=== PATIENT | female | born 1930 | race Caucasian/White ===

== ENCOUNTER 2016-08-02 06:00 | Emergency (ER) | payer MEDICARE, OTHER ==
[2016-08-02] MEDS ORDERED: HYDROmorphone 1 MG/ML Syringe IVPUSH ONE ×2 (06:15→07:07)
[2016-08-02] MEDS: Sodium Chloride 0.9% 1,000 ML IV ONE ×2 (06:40→09:00)
[2016-08-02] MEDS ORDERED: Metoclopramide 10 MG/2 ML SDV ONE (06:40)
[2016-08-02 07:04] LABS: CHLORIDE,CL 101 mmol/L (98-115); SODIUM,NA 140 mmol/L (136-145)
[2016-08-02] MEDS ORDERED: HYDROmorphone 1 MG/ML Syringe ONE (07:06)
[2016-08-02] MEDS ORDERED: Iopamidol 612 MG/ML 75 ML Bottle IV ONE (07:14)
[2016-08-02] MEDS ORDERED: Sodium Chloride 0.9% 50 ML SDV FLUSH SCH (07:15)
--- NOTE | 2016-08-02 07:15 | EDM.PDOC ---
<Augustus Jacob - Last Filed: 08/02/16 07:09> ED HPI GI/ABDOMINAL - General Chief Complaint: Abdominal Pain Stated Complaint: abd pain Time Seen by Provider: 08/02/16 06:50 Source of Information: Reports: Patient, Family ([employer]) History Limitations: Reports: No limitations - History of Present Illness INITIAL COMMENTS - FREE TEXT/NARRATIVE: PT STATES SHE DEVELOPED GENERALIZED ABD PAIN AT 1800 YESTERDAY. PAIN DESCRIBED SHARP, CONSTANT, AND BECOMING WORSE. ONE EPISODE OF VOMITING. DENIES FEVER, BOWEL CHANGES, BLOODY STOOL, DYSURIA, CP, OR SOB. Symptom Onset Date: 08/01/16 Symptom Onset Time: 18:00 Timing/Duration: Reports: Hour(s): Location: generalized Quality: Reports: ache Severity: severe Improves with: Reports: other (NOTHING) Worsens with: Reports: vomiting Context: Reports: other (DENIES ANY) Associated Symptoms (-Female): Reports: nausea/vomiting. Denies: chest pain, back pain, shoulder pain, constipation, diarrhea, bloody stools, fever/chills Treatments [employer]: Reports: See EMS Report - Related Data Allergies/ADRs: Allergies Allergy/AdvReac Type Severity Reaction Status Date / Time Penicillins Allergy Rash Verified 01/22/16 11:05 Home Meds: Home Meds Benazepril [Lotensin] 20 mg PO DAILY 01/22/16 [History] Potassium Chloride 20 meq PO 01/22/16 [History] Triamt/Hctz 1 tab PO DAILY 01/22/16 [History] Vit A/Vit C/Vit E/Zinc/Copper [Preservision] 1 each PO BID 01/22/16 [History] atorvaSTATin Calcium [Atorvastatin Calcium] 80 mg PO 01/22/16 [History] Past Medical History HEENT History: Reports: Cataract, Macular degeneration Cardiovascular History: Reports: Heart murmur, Hypertension Gastrointestinal History: Reports: GERD Musculoskeletal History: Reports: Arthritis, Other (see below) Other Musculoskeletal History: Lower back arthritis Neurological History: Reports: Other (see below) Other Neuro History: No history of WOLF or migraines until past 2 weeks - Infectious Disease History Infectious Disease History: Reports: Chicken pox, Measles, Mumps - Past Surgical History HEENT Surgical History: Reports: Cataract surgery Cardiovascular Surgical History: Reports: Carotid endarterectomy GI Surgical History: Reports: None Musculoskeletal Surgical History: Reports: None Social & Family History - Tobacco Use Smoking Status *Q: Current Every Day Smoker Years of Tobacco use: 66 Packs/Tins Daily: 1 - Caffeine Use Caffeine Use: Reports: Coffee - Recreational Drug Use Recreational Drug Use: No ED ROS GENERAL - Review of Systems Review Of Systems: ROS reveals no pertinent complaints other than HPI. Constitutional: Reports: no symptoms HEENT: Reports: No symptoms Respiratory: Reports: No Symptoms Cardiovascular: Reports: No symptoms Endocrine: Reports: no symptoms GI/Abdominal: Reports: Abdominal pain : Reports: no symptoms Musculoskeletal: Reports: no symptoms Skin: Reports: no symptoms Neurological: Reports: No Symptoms Psychiatric: Reports: No symptoms Hematologic/Lymphatic: Reports: no symptoms Immunologic: Reports: no symptoms ED EXAM, GI/ABD - Physical Exam Exam: See Below Exam Limited By: No limitations General Appearance: alert, WD/WN, moderate distress, thin Eyes: bilateral: normal appearance Nose: normal inspection, normal mucosa, no blood Throat/Mouth: Normal inspection, Normal oropharynx, No airway compromise Head: atraumatic, normocephalic Neck: normal inspection Respiratory/Chest: no respiratory distress, lungs clear, normal breath sounds, no accessory muscle use, chest non-tender Cardiovascular: normal peripheral pulses, regular rate, rhythm, no murmur GI/Abdominal: soft, no distention, no mass, hyperactive bowel sounds, tenderness (DIFFUSE), guarding. No: non tender Back Exam: normal inspection. No: CVA tenderness (L), CVA tenderness (R) Extremities: normal inspection, no pedal edema Neurological: alert, oriented, normal cognition Psychiatric: normal affect, normal mood Skin Exam: Warm, Dry, Intact, Normal color, No rash Lymphatic: no adenopathy Course - Vital Signs Last Recorded V/S: Last Vital Signs Temp 97.0 F 08/02/16 07:01 Pulse 97 08/02/16 07:01 Resp 20 08/02/16 07:01 BP 115/51 L 08/02/16 07:01 Pulse Ox 93 L 08/02/16 07:01 - Orders/Labs/Meds Orders: Active Orders 24 hr Category Date Time Status Abdomen Pelvis w Cont [CT] Stat Exams 08/02/16 07:08 Taken Sodium Chloride 0.9% [Normal Saline] Med 08/02/16 07:15 Active 50 ml FLUSH ASDIRECTED Medication Orders Sodium Chloride (Normal Saline) 50 ml FLUSH ASDIRECTED HALLE Labs: Laboratory Tests 08/02/16 08/02/16 08/02/16 Range/Units 06:20 06:20 06:20 WBC 17.0 H (5.0-10.0) 10^3/uL RBC 4.03 (3.80-5.50) 10^6/uL Hgb 13.5 (12.0-16.0) g/dL Hct 39.4 (37.0-47.0) % MCV 97.8 H (82.0-92.0) fL MCH 33.5 H (27.0-31.0) pg MCHC 34.3 (32.0-36.0) g/dL RDW 12.2 (11.5-14.5) % Plt Count 268 (150-300) 10^3/uL MPV 7.3 L (7.4-10.4) fL Neut % (Auto) 88.5 H (50.0-70.0) % Lymph % (Auto) 6.3 L (20.0-40.0) % [place] % (Auto) 1.8 L (2.0-8.0) % Eos % (Auto) 0.0 L (1.0-3.0) % Baso % (Auto) 3.4 H (0.0-1.0) % Neut # (Auto) 15.0 H (2.5-7.0) 10^3/uL Lymph # (Auto) 1.1 (1.0-4.0) 10^3/uL [place] # (Auto) 0.3 (0.1-0.8) 10^3/uL Eos # (Auto) 0.0 L (0.1-0.3) 10^3/uL Baso # (Auto) 0.6 H (0.0-0.1) 10^3/uL Sodium 140 (136-145) mmol/L Potassium 4.0 (3.3-5.3) mmol/L Chloride 101 (98-115) mmol/L Carbon Dioxide 26.9 (21.0-32.0) mmol/L BUN 18 (6-25) mg/dL Creatinine 0.94 (0.51-1.17) mg/dL Est Cr Clr Drug Dosing TNP Estimated GFR (MDRD) 57 mL/min Glucose 155 H (70-110) mg/dL Calcium 9.4 (8.7-10.3) mg/dL Total Bilirubin 0.5 (0.2-1.0) mg/dL AST 27 (15-37) U/L ALT 23 (12-78) U/L Alkaline Phosphatase 129 H (46-116) IU/L Total Protein 7.6 (6.4-8.2) g/dL Albumin 3.69 (3.00-4.80) g/dL Lipase 154 (73-393) U/L Specimen Type Urine Color (YELLOW) Urine Appearance (CLEAR) Urine pH (5.0-9.0) Ur Specific [place] (1.005-1.030) Urine Protein (NEGATIVE) mg/dL Urine Glucose (UA) (NEGATIVE) mg/dL Urine Ketones (NEGATIVE) mg/dL Urine Occult Blood (NEGATIVE) Urine Nitrite (NEGATIVE) Urine Bilirubin (NEGATIVE) Urine Urobilinogen (0.2-1.0) E.U./dL Ur Leukocyte Esterase (NEGATIVE) Urine RBC /HPF Urine WBC /HPF Ur Epithelial Cells /LPF Urine Bacteria (NONE TO FEW) /HPF 08/02/16 Range/Units 08:00 WBC (5.0-10.0) 10^3/uL RBC (3.80-5.50) 10^6/uL Hgb (12.0-16.0) g/dL Hct (37.0-47.0) % MCV (82.0-92.0) fL MCH (27.0-31.0) pg MCHC (32.0-36.0) g/dL RDW (11.5-14.5) % Plt Count (150-300) 10^3/uL MPV (7.4-10.4) fL Neut % (Auto) (50.0-70.0) % Lymph % (Auto) (20.0-40.0) % [place] % (Auto) (2.0-8.0) % Eos % (Auto) (1.0-3.0) % Baso % (Auto) (0.0-1.0) % Neut # (Auto) (2.5-7.0) 10^3/uL Lymph # (Auto) (1.0-4.0) 10^3/uL [place] # (Auto) (0.1-0.8) 10^3/uL Eos # (Auto) (0.1-0.3) 10^3/uL Baso # (Auto) (0.0-0.1) 10^3/uL Sodium (136-145) mmol/L Potassium (3.3-5.3) mmol/L Chloride (98-115) mmol/L Carbon Dioxide (21.0-32.0) mmol/L BUN (6-25) mg/dL Creatinine (0.51-1.17) mg/dL Est Cr Clr Drug Dosing Estimated GFR (MDRD) mL/min Glucose (70-110) mg/dL Calcium (8.7-10.3) mg/dL Total Bilirubin (0.2-1.0) mg/dL AST (15-37) U/L ALT (12-78) U/L Alkaline Phosphatase (46-116) IU/L Total Protein (6.4-8.2) g/dL Albumin (3.00-4.80) g/dL Lipase (73-393) U/L Specimen Type Urincath Urine Color Yellow (YELLOW) Urine Appearance Clear (CLEAR) Urine pH 5.5 (5.0-9.0) Ur Specific [place] 1.020 (1.005-1.030) Urine Protein 30 H (NEGATIVE) mg/dL Urine Glucose (UA) Negative (NEGATIVE) mg/dL Urine Ketones Negative (NEGATIVE) mg/dL Urine Occult Blood Negative (NEGATIVE) Urine Nitrite Negative (NEGATIVE) Urine Bilirubin Negative (NEGATIVE) Urine Urobilinogen 0.2 (0.2-1.0) E.U./dL Ur Leukocyte Esterase Negative (NEGATIVE) Urine RBC 0-5 /HPF Urine WBC 0-5 /HPF Ur Epithelial Cells Rare /LPF Urine Bacteria Occasional (NONE TO FEW) /HPF Meds: Medications Generic Name Dose Route Start Last Admin Trade Name Freq PRN Reason Stop Dose Admin Sodium Chloride 50 ml 08/02/16 07:15 Normal Saline FLUSH ASDIRECTED HALLE Discontinued Medications Generic Name Dose Route Start Last Admin Trade Name Freq PRN Reason Stop Dose Admin Hydromorphone HCl 1 mg 08/02/16 06:15 08/02/16 06:40 Dilaudid IVPUSH 08/02/16 06:16 1 mg ONETIME ONE Administration Hydromorphone HCl 1 mg 08/02/16 07:07 08/02/16 07:10 Dilaudid IVPUSH 08/02/16 07:08 1 mg ONETIME ONE Administration Hydromorphone HCl Confirm 08/02/16 07:06 08/02/16 08:01 Dilaudid Administered 08/02/16 07:07 Not Given Dose 1 mg .ROUTE .STK-MED ONE Sodium Chloride 1,000 mls @ 999 mls/hr 08/02/16 06:45 08/02/16 06:40 Normal Saline IV 08/02/16 07:45 999 mls/hr .BOLUS ONE Administration Iopamidol 75 ml 08/02/16 07:14 Isovue-300 (61%) IV 08/02/16 07:15 ONETIME ONE Metoclopramide HCl Confirm 08/02/16 06:40 08/02/16 08:02 Reglan Administered 08/02/16 06:41 Not Given Dose 10 mg .ROUTE .STK-MED ONE Metoclopramide HCl 10 mg 08/02/16 08:04 08/02/16 06:40 Reglan IVPUSH 08/02/16 08:05 10 mg ONETIME ONE Administration - Re-Assessments/Exams Free Text/Narrative Re-Assessment/Exam: 08/02/16 08:11 PT AFEBRILE, VSS, PAIN CONTROLLED. REPORT GIVEN TO WILL FOLLOW PT AND REVIEW CT. Departure - Departure Disposition: DC/Tfer to [facility] 02 Clinical Impression: Neutrophilic leukocytosis, Abdominal aortic aneurysm (AAA) 3.0 cm to 5.0 cm in diameter in female, Free fluid in pelvis Abdominal pain Qualifiers: Abdominal location: generalized Qualified Code(s): R10.84 - Generalized abdominal pain Cholecystolithiasis Qualifiers: Cholecystitis acuity: acute Forms: ED Department Discharge <Anil Reynolds - Last Filed: 08/02/16 09:12> ED EXAM, GI/ABD - Physical Exam GI/Abdominal: other (I re-examined abdomen when I took over care. Pain is most severe surrounding umbilicus and LLQ at this time. There is guarding and moderate firmness at LLQ.) Psychiatric: other (Patient is quite "groggy" with the narcotic doses on board. She does open her eyes in response to questions and cooperates with exam.) Course - Re-Assessments/Exams Free Text/Narrative Re-Assessment/Exam: 08/02/16 08:59 CT report identifies enlarged gallbladder, gallstones, enlarged abdominal aorta , prominent appendix, one atrophic kidney and one hypertrophic kidney, no hydronephrosis. CBC is 17K. Discussed findings with patient and her family; called [facility] and spoke with ER Dr. Froylan Sanchez who discussed case with the on-call general surgeon and accepted patient for transfer. Patient is being transferred via ambulance and left in stable condition. Departure - Departure Time of Disposition: 09:02 Condition: good
[2016-08-02] MEDS ORDERED: Metoclopramide 10 MG/2 ML SDV IVPUSH ONE (08:04)
[2016-08-02 08:47] VITALS: BP 176/69
== END 2016-08-02 09:10 ==
LOC: KA.ED 06:00
DX: I71.4 Abdominal aortic aneurysm, without rupture (principal); D72.829 Elevated white blood cell count, unspecified; K80.20 Calculus of gallbladder without cholecystitis without obstruction; F17.210 Nicotine dependence, cigarettes, uncomplicated; I10 Essential (primary) hypertension; K21.9 Gastro-esophageal reflux disease without esophagitis; Z88.0 Allergy status to penicillin; Z79.899 Other long term (current) drug therapy; Z98.49 Cataract extraction status, unspecified eye; Z98.890 Other specified postprocedural states
CPT/HCPCS: 36415; 74177; 80053; 81001; 83690; 85025; 96361; 96374; 96375; 96376; 99285; J1170; J2765; J7030; Q9967

== ENCOUNTER 2020-04-10 05:08 | Emergency (ER) | payer MEDICARE, OTHER ==
[2020-04-10] MEDS ORDERED: Sodium Chloride 0.9% 1,000 ML IV ONE (05:51)
--- NOTE | 2020-04-10 06:24 | EDM.PDOC ---
ED HPI GENERAL MEDICAL PROBLEM - General Chief Complaint: General Stated Complaint: weakness Time Seen by Provider: 04/10/20 05:45 Source of Information: Reports: Patient, Family History Limitations: Reports: No Limitations - History of Present Illness INITIAL COMMENTS - FREE TEXT/NARRATIVE: 89 YO WF PRESENTS TO ER BY EMS WITH COMPLAINTS OF GENERALIZED WEAKNESS AND BLOODY STOOLS WHICH BEGAN 3 DAYS AGO. PT RECEIVED HER FIRST DOSE OF CHEMOTHERAPY FOR LYMPHOMA/BRAIN METS ON Friday04/05/2020 AND BEGAN WITH WEAKNESS AND BLOODY STOOLS 1 DAY LATER. PT COMPLAINING OF DIZZINESS. PT DENIES FEVER/CHILLS, NO CHEST PAIN, NO SHORTNESS OF BREATH. PT REPORTS APPROXIMATELY 4 BLOODY STOOLS PER DAY FOR THE LAST 3 DAYS. Duration: Day(s): (3) Location: Reports: Generalized Severity: Moderate Improves with: Reports: Rest Worsens with: Reports: Movement Associated Symptoms: Reports: Loss of Appetite, Malaise, Weakness. Denies: Confusion, Chest Pain, Diaphoresis, Fever/Chills stomach Pain Score (Numeric/FACES): 5 - Related Data Allergies Allergy/AdvReac Type Severity Reaction Status Date / Time Penicillins Allergy Rash Verified 04/10/20 05:12 Home Meds: Home Meds Potassium Chloride 20 meq PO DAILY 01/22/16 [History] atorvaSTATin Calcium [Atorvastatin Calcium] 80 mg PO DAILY 01/22/16 [History] Alendronate Sodium [Fosamax] 70 mg PO WEEKLY 04/03/20 [History] Aspirin [Aspirin EC] 81 mg PO DAILY 04/03/20 [History] Benazepril [Lotensin] 20 mg PO DAILY 04/03/20 [History] Calcium Carbonate/Vitamin D3 [Calcium 1,000 + D3 [place]] 1 tab PO BID 04/03/20 [History] Cinnamon Bark [Cinnamon] 500 mg PO DAILY 04/03/20 [History] Cyanocobalamin/Folic Acid [Vitamin R71-Agkff Acid] 1 each PO DAILY 04/03/20 [History] Garlic 1,000 mg PO DAILY 04/03/20 [History] [place]-3/DHA/EPA/DPA/Fish Oil [[place]-3 1,050 mg Softgel] 1 cap PO DAILY 04/03/20 [History] levETIRAcetam [Keppra] 500 mg PO BID 04/03/20 [History] traZODone HCl [Trazodone HCl] 50 mg PO BEDTIME PRN 04/03/20 [History] Past Medical History HEENT History: Reports: Cataract, Macular Degeneration Cardiovascular History: Reports: Heart Murmur, High Cholesterol, Hypertension Gastrointestinal History: Reports: Cholelithiasis, [employer] History: Reports: Musculoskeletal History: Reports: Arthritis, Other (See Below) Other Musculoskeletal History: Lower back arthritis Neurological History: Reports: Other (See Below) Other Neuro History: No history of WOLF or migraines until past 2 weeks Endocrine/Metabolic History: Reports: Vitamin D Deficiency Oncologic (Cancer) History: Reports: Brain - Infectious Disease History Infectious Disease History: Reports: Chicken Pox, Measles, Mumps - Past Surgical History HEENT Surgical History: Reports: Cataract Surgery Cardiovascular Surgical History: Reports: Carotid Endarterectomy GI Surgical History: Reports: None Musculoskeletal Surgical History: Reports: None Social & Family History - Family History Family Medical History: No Pertinent Family History - Caffeine Use Caffeine Use: Reports: Coffee ED ROS GENERAL - Review of Systems Review Of Systems: See Below Constitutional: Reports: Malaise, Weakness, Fatigue HEENT: Reports: No Symptoms Respiratory: Reports: No Symptoms Cardiovascular: Reports: No Symptoms Endocrine: Reports: No Symptoms GI/Abdominal: Reports: Bloody Stool : Reports: No Symptoms Musculoskeletal: Reports: No Symptoms Skin: Reports: No Symptoms Neurological: Reports: Dizziness, Weakness Psychiatric: Reports: No Symptoms Hematologic/Lymphatic: Reports: No Symptoms Immunologic: Reports: No Symptoms ED EXAM, GENERAL - Physical Exam Exam: See Below Exam Limited By: No Limitations General Appearance: Alert, WD/WN, No Apparent Distress Eye Exam: Bilateral Eye: EOMI, PERRL Throat/Mouth: Normal Inspection, Normal Lips, Normal Teeth, Normal Gums, Normal Oropharynx, Normal Voice, No Airway Compromise Head: Atraumatic, Normocephalic Neck: Normal Inspection, Supple, Non-Tender, Full Range of Motion Respiratory/Chest: No Respiratory Distress, Lungs Clear, Normal Breath Sounds, No Accessory Muscle Use, Chest Non-Tender Cardiovascular: Normal Peripheral Pulses, Regular Rate, Rhythm, No Edema, No Gallop, No JVD, No Murmur, No Rub GI/Abdominal: Normal Bowel Sounds, Soft, Non-Tender, No Organomegaly, No Distention, No Abnormal Bruit, No Mass Rectal (Female) Exam: Heme + Stool Back Exam: Normal Inspection, Full Range of Motion, NT Extremities: Normal Inspection, Normal Range of Motion, Non-Tender, Normal Capillary Refill, No Pedal Edema Neurological: Alert, Oriented, CN II-XII Intact, Normal Cognition, Normal Gait, Normal Reflexes, No Motor/Sensory Deficits Psychiatric: Normal Affect, Normal Mood Skin Exam: Warm, Dry, Intact, Normal Color, No Rash #1 Interpretation EKG Date: 04/10/20 Time: 06:34 Rhythm: NSR Rate (Beats/Min): 92 [place]: Normal P-Wave: Present QRS: Normal ST-T: Normal QT: Normal Comparison: NA - No Prior EKG Course - Vital Signs Last Recorded V/S: Last Vital Signs Temp 98.7 F 04/10/20 07:35 Pulse 83 04/10/20 06:45 Resp 20 04/10/20 07:35 BP 131/83 04/10/20 07:35 Pulse Ox 96 04/10/20 07:35 - Orders/Labs/Meds Orders: Active Orders 24 hr Category Date Time Status EKG Documentation Completion [RC] ASDIRECTED Care 04/10/20 05:55 Active Chest 2V [CR] Stat Exams 04/10/20 05:46 Ordered CULTURE URINE [RM] Stat Lab 04/10/20 06:52 Received Sodium Chloride 0.9% [Normal Saline] 1,000 ml Med 04/10/20 08:00 Active IV ASDIRECTED Medication Orders Sodium Chloride (Normal Saline) 1,000 mls @ 125 mls/hr IV ASDIRECTED HALLE Last Admin: 04/10/20 07:49 Dose: 125 mls/hr Documented by: [email or web address] Labs: Laboratory Tests 04/10/20 04/10/20 04/10/20 Range/Units 05:45 05:45 05:45 WBC (5.00-10.00) 10^3/uL RBC (3.80-5.50) 10^6/uL Hgb (12.0-16.0) g/dL Hct (37.0-47.0) % MCV (82.0-92.0) fL MCH (27.0-31.0) pg MCHC (32.0-36.0) g/dL RDW (11.5-14.5) % Plt Count (150-400) 10^3/uL MPV (7.4-10.4) fL Add Manual Diff Neutrophils % (Manual) (50-70) % Lymphocytes % (Manual) (20-40) % Monocytes % (Manual) (2-8) % Absolute Neutrophils Lymphocytes # (Manual) Monocytes # (Manual) PT 10.2 (9.2-11.2) SEC INR 1.0 (0.9-1.1) APTT (22.8-31.4) SEC Sodium 135 L (136-145) mmol/L Potassium 4.6 (3.3-5.3) mmol/L Chloride 102 (98-115) mmol/L Carbon Dioxide 21.2 (21.0-32.0) mmol/L Anion Gap 16.4 H (5-15) mmol/L BUN 60 H* D (6-25) mg/dL Creatinine 0.97 (0.51-1.17) mg/dL Est Cr Clr Drug Dosing 31.71 mL/min Estimated GFR (MDRD) 54 mL/min Glucose 122 H (75 - 99) mg/dL Lactic Acid (0.4-2.0) mmol/L Calcium 8.4 L (8.7-10.3) mg/dL Total Bilirubin 0.3 (0.2-1.0) mg/dL AST 79 H (15-37) U/L ALT 132 H (12-78) U/L Alkaline Phosphatase 92 (46-116) IU/L Troponin I 0.14 H* (0.00-0.070) ng/mL Total Protein 5.7 L (6.4-8.2) g/dL Albumin 2.20 L (3.00-4.80) g/dL Specimen Type Urine Color (YELLOW) Urine Appearance (CLEAR) Urine pH (5.0-9.0) Ur Specific [place] (1.005-1.030) Urine Protein (NEGATIVE) mg/dL Urine Glucose (UA) (NEGATIVE) mg/dL Urine Ketones (NEGATIVE) mg/dL Urine Occult Blood (NEGATIVE) Urine Nitrite (NEGATIVE) Urine Bilirubin (NEGATIVE) Urine Urobilinogen (0.2-1.0) E.U./dL Ur Leukocyte Esterase (NEGATIVE) Urine RBC Urine WBC SARS CoV-2 RNA Rapid MINDY (NEGATIVE) 04/10/20 04/10/20 04/10/20 Range/Units 05:45 05:50 05:50 WBC 12.30 H (5.00-10.00) 10^3/uL RBC 3.28 L (3.80-5.50) 10^6/uL Hgb 10.8 L (12.0-16.0) g/dL Hct 33.0 L (37.0-47.0) % MCV 100.6 H (82.0-92.0) fL MCH 32.9 H (27.0-31.0) pg MCHC 32.7 (32.0-36.0) g/dL RDW 14.3 (11.5-14.5) % Plt Count 106 L (150-400) 10^3/uL MPV 10.1 (7.4-10.4) fL Add Manual Diff Yes Neutrophils % (Manual) 96 H (50-70) % Lymphocytes % (Manual) 2 L (20-40) % Monocytes % (Manual) 2 (2-8) % Absolute Neutrophils 11.8080 Lymphocytes # (Manual) 0.2460 Monocytes # (Manual) 0.2460 PT (9.2-11.2) SEC INR (0.9-1.1) APTT 23.0 (22.8-31.4) SEC Sodium (136-145) mmol/L Potassium (3.3-5.3) mmol/L Chloride (98-115) mmol/L Carbon Dioxide (21.0-32.0) mmol/L Anion Gap (5-15) mmol/L BUN (6-25) mg/dL Creatinine (0.51-1.17) mg/dL Est Cr Clr Drug Dosing mL/min Estimated GFR (MDRD) mL/min Glucose (75 - 99) mg/dL Lactic Acid (0.4-2.0) mmol/L Calcium (8.7-10.3) mg/dL Total Bilirubin (0.2-1.0) mg/dL AST (15-37) U/L ALT (12-78) U/L Alkaline Phosphatase (46-116) IU/L Troponin I (0.00-0.070) ng/mL Total Protein (6.4-8.2) g/dL Albumin (3.00-4.80) g/dL Specimen Type Urine Color (YELLOW) Urine Appearance (CLEAR) Urine pH (5.0-9.0) Ur Specific [place] (1.005-1.030) Urine Protein (NEGATIVE) mg/dL Urine Glucose (UA) (NEGATIVE) mg/dL Urine Ketones (NEGATIVE) mg/dL Urine Occult Blood (NEGATIVE) Urine Nitrite (NEGATIVE) Urine Bilirubin (NEGATIVE) Urine Urobilinogen (0.2-1.0) E.U./dL Ur Leukocyte Esterase (NEGATIVE) Urine RBC Urine WBC SARS CoV-2 RNA Rapid MINDY Negative (NEGATIVE) 04/10/20 04/10/20 Range/Units 05:50 06:52 WBC (5.00-10.00) 10^3/uL RBC (3.80-5.50) 10^6/uL Hgb (12.0-16.0) g/dL Hct (37.0-47.0) % MCV (82.0-92.0) fL MCH (27.0-31.0) pg MCHC (32.0-36.0) g/dL RDW (11.5-14.5) % Plt Count (150-400) 10^3/uL MPV (7.4-10.4) fL Add Manual Diff Neutrophils % (Manual) (50-70) % Lymphocytes % (Manual) (20-40) % Monocytes % (Manual) (2-8) % Absolute Neutrophils Lymphocytes # (Manual) Monocytes # (Manual) PT (9.2-11.2) SEC INR (0.9-1.1) APTT (22.8-31.4) SEC Sodium (136-145) mmol/L Potassium (3.3-5.3) mmol/L Chloride (98-115) mmol/L Carbon Dioxide (21.0-32.0) mmol/L Anion Gap (5-15) mmol/L BUN (6-25) mg/dL Creatinine (0.51-1.17) mg/dL Est Cr Clr Drug Dosing mL/min Estimated GFR (MDRD) mL/min Glucose (75 - 99) mg/dL Lactic Acid 3.3 H (0.4-2.0) mmol/L Calcium (8.7-10.3) mg/dL Total Bilirubin (0.2-1.0) mg/dL AST (15-37) U/L ALT (12-78) U/L Alkaline Phosphatase (46-116) IU/L Troponin I (0.00-0.070) ng/mL Total Protein (6.4-8.2) g/dL Albumin (3.00-4.80) g/dL Specimen Type Urincath Urine Color Yellow (YELLOW) Urine Appearance Clear (CLEAR) Urine pH 5.5 (5.0-9.0) Ur Specific [place] 1.020 (1.005-1.030) Urine Protein 30 H (NEGATIVE) mg/dL Urine Glucose (UA) Negative (NEGATIVE) mg/dL Urine Ketones Negative (NEGATIVE) mg/dL Urine Occult Blood Negative (NEGATIVE) Urine Nitrite Negative (NEGATIVE) Urine Bilirubin Negative (NEGATIVE) Urine Urobilinogen 0.2 (0.2-1.0) E.U./dL Ur Leukocyte Esterase Trace H (NEGATIVE) Urine RBC Not Reportable Urine WBC Not Reportable SARS CoV-2 RNA Rapid MINDY (NEGATIVE) Meds: Medications Generic Name Dose Route Start Last Admin Trade Name Freq PRN Reason Stop Dose Admin Sodium Chloride 1,000 mls @ 125 mls/hr 04/10/20 08:00 04/10/20 07:49 Normal Saline IV 125 mls/hr ASDIRECTED HALLE Administration Discontinued Medications Generic Name Dose Route Start Last Admin Trade Name Freq PRN Reason Stop Dose Admin Sodium Chloride 1,000 mls @ 999 mls/hr 04/10/20 05:51 04/10/20 06:35 Normal Saline IV 04/10/20 06:51 999 mls/hr .BOLUS ONE Administration - Radiology Interpretation Free Text/Narrative:: CXR-NAD Departure - Departure Time of Disposition: 07:54 Disposition: DC/Tfer to Acute Hospital 02 Condition: Serious Clinical Impression: Acidosis, lactic, Elevated troponin I level GI bleeding Qualifiers: GI bleed type/associated pathology: unspecified gastrointestinal hemorrhage type Qualified Code(s): K92.2 - Gastrointestinal hemorrhage, unspecified - Discharge Information Forms: ED Department Discharge, Interfacility Transfer [facility] Sepsis Event Note (ED) - Evaluation Sepsis Screening Result: No Definite Risk - Focused Exam Vital Signs: Vital Signs Temp Pulse Resp BP Pulse Ox 04/10/20 07:35 98.7 F 20 131/83 96 04/10/20 06:45 83 12 96/72 97 04/10/20 06:30 92 14 99/68 97 04/10/20 06:15 109/90 04/10/20 06:00 112/83 04/10/20 05:14 96.6 F L 100 14 107/62 98 - My Orders Last 24 Hours: My Active Orders 04/10/20 05:46 Chest 2V [CR] Stat 04/10/20 05:55 EKG Documentation Completion [RC] ASDIRECTED 04/10/20 06:52 CULTURE URINE [RM] Stat 04/10/20 08:00 Sodium Chloride 0.9% [Normal Saline] 1,000 ml IV ASDIRECTED - Assessment/Plan Last 24 Hours: My Active Orders 04/10/20 05:46 Chest 2V [CR] Stat 04/10/20 05:55 EKG Documentation Completion [RC] ASDIRECTED 04/10/20 06:52 CULTURE URINE [RM] Stat 04/10/20 08:00 Sodium Chloride 0.9% [Normal Saline] 1,000 ml IV ASDIRECTED Assessment:: 1. GI BLEEDING 2. ELEVATED LACTIC ACID 3. ELEVATED TROP I Plan: 1. TRANSFER TO [place] FOR FURTHER EVALUATION OF GI BLEEDING- DR ALEXANDER ACCEPTING- DISCUSSED WITH DALLIN WILLAMS 2. NS@125CC/HR 3. SUPPORTIVE CARE 4. ROCEPHIN 2G IV NOW
[2020-04-10 06:50] LABS: ANION GAP 16.4 mmol/L (5-15)
[2020-04-10] MEDS ORDERED: cefTRIAXone 2 GM Vial IVPUSH ONE (07:55)
[2020-04-10] MEDS ORDERED: Sodium Chloride 0.9% 1,000 ML IV SCH (08:00)
[2020-04-10 08:52] VITALS: BP 113/79; PULSE 97
--- NOTE | 2020-04-10 09:05 | CR ---
[id number] RAD/RAD Chest PA And Lateral EXAM: FRONTAL AND LATERAL CHEST INDICATION: WEAKNESS. COMPARISON: August 02, 2016. DISCUSSION: Mild atelectasis or scarring in the left lung base with no definite infiltrates. Borderline heart size without evidence of edema. No effusions. Denser calcifications within a mildly tortuous thoracic aorta. IMPRESSION: 1. Mild left base atelectasis. No definite infiltrates. Kendrick Bradley MD 04/10/20 0903 Thank you for allowing us to participate in the care of your patient.
== END 2020-04-10 08:30 ==
LOC: KA.ED 05:08
DX: K92.2 Gastrointestinal hemorrhage, unspecified (principal); E87.2 Acidosis; R79.89 Other specified abnormal findings of blood chemistry; R74.01 Elevation of levels of liver transaminase levels; I10 Essential (primary) hypertension; E78.00 Pure hypercholesterolemia, unspecified; M19.90 Unspecified osteoarthritis, unspecified site; Z88.0 Allergy status to penicillin; Z79.899 Other long term (current) drug therapy; Z79.82 Long term (current) use of aspirin; Z20.828 Contact with and (suspected) exposure to other viral communicable diseases
CPT/HCPCS: 36415; 71046; 80053; 81001; 81003; 83605; 84484; 85025; 85610; 85730; 87086; 87088; 93005; 96374; 99284; 99285-25; J0696; J7030; U0002

== ENCOUNTER 2020-04-13 21:23 | Emergency (ER) | payer MEDICARE, OTHER ==
[2020-04-13] MEDS ORDERED: Sodium Chloride 0.9% 1,000 ML ONE (21:29)
[2020-04-13] MEDS ORDERED: Sodium Chloride 0.9% 1,000 ML IV ONE ×2 (21:38→22:41)
[2020-04-13] MEDS ORDERED: Sodium Chloride 0.9% 10 ML Syringe FLUSH PRN (21:38)
--- NOTE | 2020-04-13 21:40 | EDM.PDOC ---
ED HPI GENERAL MEDICAL PROBLEM - General Chief Complaint: Gastrointestinal Problem Stated Complaint: WEAKNESS Time Seen by Provider: 04/13/20 21:30 Source of Information: Reports: Patient History Limitations: Reports: No Limitations - History of Present Illness INITIAL COMMENTS - FREE TEXT/NARRATIVE: 89 YO WF PRESENTS TO ER BY PRIVATE VEHICLE COMPLAINING OF GENERALIZED WEAKNESS. PT WAS RECENTLY HOSPITALIZED FOR A BLEEDING ULCER AND RECEIVED BLOOD TRANSFUSION. PT ALSO RECENTLY HAD CHEMOTHERAPY FOR LYMPHOMA AND BRAIN METS. PT REPORTS SHE WAS DISCHARGED TODAY AT 4PM AND WHILE HOME FELT MORE WEAK AND DIZZY PROMPTING ER EVALUATION. PT DENIES CHEST PAIN, NAUSEA/VOMITING, NO FEVER/CHILLS, NO COUGH/CONGESTION. Onset: Today Location: Reports: Generalized Severity: Severe Improves with: Reports: None Worsens with: Reports: None Associated Symptoms: Reports: Loss of Appetite, Malaise, Weakness. Denies: Confusion, Chest Pain, Fever/Chills, Nausea/Vomiting, Rash, Shortness of Breath - Related Data Allergies Allergy/AdvReac Type Severity Reaction Status Date / Time Penicillins Allergy Rash Verified 04/13/20 22:20 Home Meds: Home Meds Potassium Chloride 20 meq PO DAILY 01/22/16 [History] atorvaSTATin Calcium [Atorvastatin Calcium] 80 mg PO DAILY 01/22/16 [History] Alendronate Sodium [Fosamax] 70 mg PO WEEKLY 04/03/20 [History] Aspirin [Aspirin EC] 81 mg PO DAILY 04/03/20 [History] Benazepril [Lotensin] 20 mg PO DAILY 04/03/20 [History] Calcium Carbonate/Vitamin D3 [Calcium 1,000 + D3 Caplet] 1 tab PO BID 04/03/20 [History] Cinnamon Bark [Cinnamon] 500 mg PO DAILY 04/03/20 [History] Cyanocobalamin/Folic Acid [Vitamin B76-Yjkru Acid] 1 each PO DAILY 04/03/20 [History] Garlic 1,000 mg PO DAILY 04/03/20 [History] [place]-3/DHA/EPA/DPA/Fish Oil [[place]-3 1,050 mg Softgel] 1 cap PO DAILY 04/03/20 [History] levETIRAcetam [Keppra] 500 mg PO BID 04/03/20 [History] traZODone HCl [Trazodone HCl] 50 mg PO BEDTIME PRN 04/03/20 [History] Pembrolizumab [Keytruda] 200 mg IV ASDIRECTED 04/13/20 [History] Vit A/Vit C/Vit E/Zinc/Copper [Preservision Areds Softgel] 1 tab PO BID 04/13/20 [History] dexAMETHasone [Dexamethasone] 4 mg PO BID 04/13/20 [History] Past Medical History HEENT History: Reports: Cataract, Macular Degeneration Cardiovascular History: Reports: Heart Murmur, High Cholesterol, Hypertension Gastrointestinal History: Reports: Cholelithiasis, GERD, GI Bleed FUR DYER History: Reports: Musculoskeletal History: Reports: Arthritis, Other (See Below) Other Musculoskeletal History: Lower back arthritis Neurological History: Reports: Other (See Below) Other Neuro History: No history of WOLF or migraines until past 2 weeks Endocrine/Metabolic History: Reports: Vitamin D Deficiency Hematologic History: Reports: Anemia Oncologic (Cancer) History: Reports: Brain - Infectious Disease History Infectious Disease History: Reports: Chicken Pox, Measles, Mumps - Past Surgical History HEENT Surgical History: Reports: Cataract Surgery Cardiovascular Surgical History: Reports: Carotid Endarterectomy, Other (See Below) Other Cardiovascular Surgeries/Procedures: AAA (controlled) GI Surgical History: Reports: None Musculoskeletal Surgical History: Reports: None Social & Family History - Family History Family Medical History: No Pertinent Family History - Caffeine Use Caffeine Use: Reports: Coffee ED ROS GENERAL - Review of Systems Review Of Systems: See Below Constitutional: Reports: Malaise, Weakness, Fatigue HEENT: Reports: No Symptoms Respiratory: Reports: No Symptoms Cardiovascular: Reports: No Symptoms Endocrine: Reports: No Symptoms GI/Abdominal: Reports: No Symptoms : Reports: No Symptoms Musculoskeletal: Reports: No Symptoms Skin: Reports: No Symptoms Neurological: Reports: No Symptoms Psychiatric: Reports: No Symptoms Hematologic/Lymphatic: Reports: No Symptoms Immunologic: Reports: No Symptoms ED EXAM, GI/ABD - Physical Exam Exam: See Below Exam Limited By: No Limitations General Appearance: Alert, WD/WN, Mild Distress Eyes: Bilateral: Pale Conjunctiva Throat/Mouth: Normal Inspection, Normal Lips, Normal Teeth, Normal Gums, Normal Oropharynx, Normal Voice, No Airway Compromise Head: Atraumatic, Normocephalic Neck: Normal Inspection, Supple, Non-Tender, Full Range of Motion Respiratory/Chest: No Respiratory Distress, Lungs Clear, Normal Breath Sounds, No Accessory Muscle Use, Chest Non-Tender Cardiovascular: Normal Peripheral Pulses, Regular Rate, Rhythm, No Edema, No Gallop, No JVD, No Murmur, No Rub GI/Abdominal Exam: Normal Bowel Sounds, Soft, Non-Tender, No Organomegaly, No Distention, No Abnormal Bruit, No Mass, Pelvis Stable Rectal (Female) Exam: Heme + Stool Back Exam: Normal Inspection, Full Range of Motion, NT Extremities: Normal Inspection, Normal Range of Motion, Non-Tender, Normal Capillary Refill, No Pedal Edema Neurological: Alert, Oriented, CN II-XII Intact, Normal Cognition, Normal Gait, Normal Reflexes, No Motor/Sensory Deficits Psychiatric: Depressed Mood Skin Exam: Jaundice #1 Interpretation EKG Date: 04/13/20 Time: 22:44 Rhythm: NSR Rate (Beats/Min): 97 Mccall: Normal P-Wave: Present QRS: Normal ST-T: Normal QT: Normal Course - Vital Signs Last Recorded V/S: Last Vital Signs Temp 96.8 F L 04/13/20 22:35 Pulse 82 04/13/20 23:33 Resp 20 04/13/20 23:33 BP 94/39 L 04/13/20 23:33 Pulse Ox 95 04/13/20 23:33 - Orders/Labs/Meds Orders: Active Orders 24 hr Category Date Time Status EKG Documentation Completion [RC] ASDIRECTED Care 04/13/20 22:30 Active Peripheral IV Care [RC] . DIRECTED Care 04/13/20 21:38 Active Chest 1V Frontal [CR] Stat Exams 04/13/20 21:46 Ordered CULTURE BLOOD [BC] Stat Lab 04/13/20 23:10 Received TYPE AND SCREEN [BBK] Stat Lab 04/13/20 22:00 Results Sodium Chloride 0.9% [Normal Saline] 1,000 ml Med 04/13/20 23:45 Active IV ASDIRECTED Sodium Chloride 0.9% [Saline Flush] Med 04/13/20 21:38 Active 10 ml FLUSH Q8HR PRN Blood Culture x2 Reflex Set [OM.PC] Stat Oth 04/13/20 22:55 Ordered Peripheral IV Insertion Adult [OM.PC] Routine Oth 04/13/20 21:38 Ordered EKG 12 Lead [EK] Stat Ther 04/13/20 22:30 Ordered Medication Orders Sodium Chloride (Normal Saline) 1,000 mls @ 125 mls/hr IV ASDIRECTED HALLE Last Admin: 04/13/20 23:46 Dose: 125 mls/hr Documented by: DUANE Sodium Chloride (Saline Flush) 10 ml FLUSH Q8HR PRN PRN Reason: keep vein open Last Admin: 04/13/20 23:15 Dose: 10 ml Documented by: OZZIE Labs: Laboratory Tests 04/13/20 04/13/20 04/13/20 Range/Units 22:00 22:00 22:00 WBC 4.21 L (5.00-10.00) 10^3/uL RBC 2.65 L (3.80-5.50) 10^6/uL Hgb 8.5 L D (12.0-16.0) g/dL Hct 25.3 L (37.0-47.0) % MCV 95.5 H D (82.0-92.0) fL MCH 32.1 H (27.0-31.0) pg MCHC 33.6 (32.0-36.0) g/dL RDW 18.8 H (11.5-14.5) % Plt Count 93 L (150-400) 10^3/uL MPV 9.8 (7.4-10.4) fL Immature Gran % (Auto) 0.5 (0.0-5.0) % Neut % (Auto) 85.7 H (50.0-70.0) % Lymph % (Auto) 12.6 L (20.0-40.0) % [place] % (Auto) 0.7 L (2.0-8.0) % Eos % (Auto) 0.5 L (1.0-3.0) % Baso % (Auto) 0.0 (0.0-1.0) % Neut # (Auto) 3.61 (2.50-7.00) 10^3/uL Lymph # (Auto) 0.53 L (1.00-4.00) 10^3/uL [place] # (Auto) 0.03 L (0.10-0.80) 10^3/uL Eos # (Auto) 0.02 L (0.10-0.30) 10^3/uL Baso # (Auto) 0.00 (0.00-0.10) 10^3/uL Immature Gran # (Auto) 0.02 (0.00-0.50) 10^3/uL Sodium 134 L (136-145) mmol/L Potassium 3.9 (3.3-5.3) mmol/L Chloride 103 (98-115) mmol/L Carbon Dioxide 16.6 L (21.0-32.0) mmol/L Anion Gap 18.3 H (5-15) mmol/L BUN 28 H D (6-25) mg/dL Creatinine 0.77 (0.51-1.17) mg/dL Est Cr Clr Drug Dosing 38.11 mL/min Estimated GFR (MDRD) > 60 mL/min Glucose 126 H (75 - 99) mg/dL Lactic Acid (0.4-2.0) mmol/L Calcium 7.5 L (8.7-10.3) mg/dL Total Bilirubin 0.7 (0.2-1.0) mg/dL AST 29 (15-37) U/L ALT 106 H (12-78) U/L Alkaline Phosphatase 80 (46-116) IU/L Troponin I < 0.04 (0.00-0.070) ng/mL Total Protein 4.7 L (6.4-8.2) g/dL Albumin 2.00 L (3.00-4.80) g/dL Lipase (73-393) U/L Specimen Type Urine Color (YELLOW) Urine Appearance (CLEAR) Urine pH (5.0-9.0) Ur Specific [place] (1.005-1.030) Urine Protein (NEGATIVE) mg/dL Urine Glucose (UA) (NEGATIVE) mg/dL Urine Ketones (NEGATIVE) mg/dL Urine Occult Blood (NEGATIVE) Urine Nitrite (NEGATIVE) Urine Bilirubin (NEGATIVE) Urine Urobilinogen (0.2-1.0) E.U./dL Ur Leukocyte Esterase (NEGATIVE) Urine RBC (0-5) /HPF Urine WBC (0-5) /HPF Ur Epithelial Cells /LPF Urine Bacteria (NONE TO FEW) /HPF Blood Type A POSITIVE 04/13/20 04/13/20 04/13/20 Range/Units 22:00 22:00 23:20 WBC (5.00-10.00) 10^3/uL RBC (3.80-5.50) 10^6/uL Hgb (12.0-16.0) g/dL Hct (37.0-47.0) % MCV (82.0-92.0) fL MCH (27.0-31.0) pg MCHC (32.0-36.0) g/dL RDW (11.5-14.5) % Plt Count (150-400) 10^3/uL MPV (7.4-10.4) fL Immature Gran % (Auto) (0.0-5.0) % Neut % (Auto) (50.0-70.0) % Lymph % (Auto) (20.0-40.0) % [place] % (Auto) (2.0-8.0) % Eos % (Auto) (1.0-3.0) % Baso % (Auto) (0.0-1.0) % Neut # (Auto) (2.50-7.00) 10^3/uL Lymph # (Auto) (1.00-4.00) 10^3/uL [place] # (Auto) (0.10-0.80) 10^3/uL Eos # (Auto) (0.10-0.30) 10^3/uL Baso # (Auto) (0.00-0.10) 10^3/uL Immature Gran # (Auto) (0.00-0.50) 10^3/uL Sodium (136-145) mmol/L Potassium (3.3-5.3) mmol/L Chloride (98-115) mmol/L Carbon Dioxide (21.0-32.0) mmol/L Anion Gap (5-15) mmol/L BUN (6-25) mg/dL Creatinine (0.51-1.17) mg/dL Est Cr Clr Drug Dosing mL/min Estimated GFR (MDRD) mL/min Glucose (75 - 99) mg/dL Lactic Acid 3.8 H (0.4-2.0) mmol/L Calcium (8.7-10.3) mg/dL Total Bilirubin (0.2-1.0) mg/dL AST (15-37) U/L ALT (12-78) U/L Alkaline Phosphatase (46-116) IU/L Troponin I (0.00-0.070) ng/mL Total Protein (6.4-8.2) g/dL Albumin (3.00-4.80) g/dL Lipase 229 (73-393) U/L Specimen Type Urinvoid Urine Color Yellow (YELLOW) Urine Appearance Clear (CLEAR) Urine pH 6.5 (5.0-9.0) Ur Specific [place] 1.015 (1.005-1.030) Urine Protein Negative (NEGATIVE) mg/dL Urine Glucose (UA) Negative (NEGATIVE) mg/dL Urine Ketones Negative (NEGATIVE) mg/dL Urine Occult Blood Large H (NEGATIVE) Urine Nitrite Negative (NEGATIVE) Urine Bilirubin Negative (NEGATIVE) Urine Urobilinogen 0.2 (0.2-1.0) E.U./dL Ur Leukocyte Esterase Small H (NEGATIVE) Urine RBC 10-20 H (0-5) /HPF Urine WBC 20-30 H (0-5) /HPF Ur Epithelial Cells Moderate H /LPF Urine Bacteria Few (NONE TO FEW) /HPF Blood Type Meds: Medications Generic Name Dose Route Start Last Admin Trade Name Edgar PRN Reason Stop Dose Admin Sodium Chloride 1,000 mls @ 125 mls/hr 04/13/20 23:45 04/13/20 23:46 Normal Saline IV 125 mls/hr ASDIRECTED HALLE Administration Sodium Chloride 10 ml 04/13/20 21:38 04/13/20 23:15 Saline Flush FLUSH 10 ml Q8HR PRN Administration keep vein open Discontinued Medications Generic Name Dose Route Start Last Admin Trade Name Edgar PRN Reason Stop Dose Admin Ceftriaxone Sodium 2 gm 04/13/20 22:54 04/13/20 23:13 Rocephin IVPUSH 04/13/20 22:55 2 gm ONETIME ONE Administration Sodium Chloride Confirm 04/13/20 21:29 04/13/20 21:43 Normal Saline Administered 04/13/20 21:30 Not Given Dose 1,000 mls @ as directed .ROUTE .STK-MED ONE Sodium Chloride 1,000 mls @ 999 mls/hr 04/13/20 21:38 04/13/20 21:43 Normal Saline IV 04/13/20 22:38 999 mls/hr .BOLUS ONE Administration Sodium Chloride 1,000 mls @ 999 mls/hr 04/13/20 22:41 04/13/20 22:42 Normal Saline IV 04/13/20 23:41 999 mls/hr .BOLUS ONE Administration - Radiology Interpretation Free Text/Narrative:: CXR-NAD Departure - Departure Time of Disposition: 00:26 Disposition: DC/Tfer to Acute Hospital 02 Condition: Serious Clinical Impression: Sepsis Qualifiers: Sepsis acute organ dysfunction status: without acute organ dysfunction GI bleed Qualifiers: GI bleed type/associated pathology: unspecified gastrointestinal hemorrhage type Qualified Code(s): K92.2 - Gastrointestinal hemorrhage, unspecified UTI (urinary tract infection) Qualifiers: Urinary tract infection type: acute cystitis - Discharge Information Referrals: Tuan Burrell MD [Primary Care Provider] - Forms: ED Department Discharge, Interfacility Transfer EMTALA Sepsis Event Note (ED) - Focused Exam Vital Signs: Vital Signs Temp Temp Pulse Pulse Resp BP BP 04/13/20 23:33 82 20 94/39 L 04/13/20 23:09 82 86/58 L 04/13/20 22:35 96.8 F L 89 22 H 106/89 04/13/20 22:20 88 20 121/83 04/13/20 22:00 82 16 98/64 04/13/20 21:35 84 20 104/84 04/13/20 21:26 123/64 04/13/20 21:25 151/70 H 04/13/20 21:23 97.5 F 78 28 H 77/25 L Pulse Ox 04/13/20 23:33 95 04/13/20 23:09 04/13/20 22:35 95 04/13/20 22:20 97 04/13/20 22:00 93 L 04/13/20 21:35 94 L 04/13/20 21:26 04/13/20 21:25 04/13/20 21:23 95 - My Orders Last 24 Hours: My Active Orders 04/13/20 21:38 Peripheral IV Care [RC] . DIRECTED Sodium Chloride 0.9% [Saline Flush] 10 ml FLUSH Q8HR PRN Peripheral IV Insertion Adult [OM.PC] Routine 04/13/20 21:46 Chest 1V Frontal [CR] Stat 04/13/20 22:00 TYPE AND SCREEN [BBK] Stat 04/13/20 22:30 EKG Documentation Completion [RC] ASDIRECTED EKG 12 Lead [EK] Stat 04/13/20 22:55 Blood Culture x2 Reflex Set [OM.PC] Stat 04/13/20 23:10 CULTURE BLOOD [BC] Stat 04/13/20 23:45 Sodium Chloride 0.9% [Normal Saline] 1,000 ml IV ASDIRECTED - Assessment/Plan Last 24 Hours: My Active Orders 04/13/20 21:38 Peripheral IV Care [RC] . DIRECTED Sodium Chloride 0.9% [Saline Flush] 10 ml FLUSH Q8HR PRN Peripheral IV Insertion Adult [OM.PC] Routine 04/13/20 21:46 Chest 1V Frontal [CR] Stat 04/13/20 22:00 TYPE AND SCREEN [BBK] Stat 04/13/20 22:30 EKG Documentation Completion [RC] ASDIRECTED EKG 12 Lead [EK] Stat 04/13/20 22:55 Blood Culture x2 Reflex Set [OM.PC] Stat 04/13/20 23:10 CULTURE BLOOD [BC] Stat 04/13/20 23:45 Sodium Chloride 0.9% [Normal Saline] 1,000 ml IV ASDIRECTED Assessment:: 1. WEAKNESS 2. RECENT GI BLEED- HEME + STOOL 3. BACTEREMIA/SEPSIS/UTI Plan: 1. TRANSFER TO [facility] / [facility] ACCEPTING 2. NS @125CC/HR 3. ROCEPHIN 2G IV 4. REPEAT H/H 5. SUPPORTIVE CARE
[2020-04-13 22:45] LABS: ANION GAP 18.3 mmol/L (5-15); CHLORIDE,CL 103 mmol/L (98-115); SODIUM,NA 134 mmol/L (136-145)
[2020-04-13] MEDS ORDERED: cefTRIAXone 2 GM Vial IVPUSH ONE (22:54)
[2020-04-13 23:10] VITALS: PULSE 82
[2020-04-13 23:33] VITALS: BP 94/39
[2020-04-13] MEDS ORDERED: Sodium Chloride 0.9% 1,000 ML IV SCH (23:45)
--- NOTE | 2020-04-14 07:46 | CR ---
[id number] RAD/RAD Chest PA or AP 1V EXAM: SINGLE VIEW CHEST. INDICATION: WEAKNESS COMPARISON: CORRELATION IS MADE WITH APRIL 10, 2020 FINDINGS: The lungs are clear The cardiomediastinal contour is stable IMPRESSION: NO PNEUMONIA OR EDEMA Tomas Pace MD 04/14/20 0745 Thank you for allowing us to participate in the care of your patient.
== END 2020-04-14 01:00 ==
LOC: KA.ED 21:23
DX: A41.9 Sepsis, unspecified organism (principal); K92.1 Melena; N30.00 Acute cystitis without hematuria; E78.00 Pure hypercholesterolemia, unspecified; I10 Essential (primary) hypertension; Z79.82 Long term (current) use of aspirin; Z79.899 Other long term (current) drug therapy; Z88.0 Allergy status to penicillin
CPT/HCPCS: 36415; 71045; 80053; 81001; 83605; 83690; 84484; 85025; 86850; 86900; 86901; 87040; 93005; 96374; 99284; 99285-25; J0696; J7030